=== PATIENT | male | born 1990 | race Caucasian/White ===

== ENCOUNTER 2016-09-03 03:35 | Emergency (ER) | payer BC ==
[2016-09-03 03:43] VITALS: BP 173/113; TEMP 97.5
[2016-09-03] MEDS ORDERED: CEPHALEXIN 500MG STARTER PACK 4 CAP BTL PO STA (04:05)
[2016-09-03] MEDS ORDERED: SULFAMETH-TMP DS STARTER PACK 2 TAB BTL PO STA (04:05)
--- NOTE | 2016-09-03 04:16 | ED ---
General Adult HPI - General Chief complaint: Skin/Abscess/Foreign Body Stated complaint: Swelling in both legs Time Seen by Provider: 09/03/16 03:41 Source: patient, RN notes reviewed Mode of arrival: ambulatory Limitations: no limitations - History of Present Illness Initial comments: 26-year-old male presenting with chief complaint of rash. Patient has had a rash on both legs, which is been red and itchy for several months. He has noticed a rash on his lower abdomen and under his arms from time to time these locations are currently resolved. The rash remains constant on both his legs primarily behind his knees. Patient has been scratching and noticed worsening swelling of his right lower extremity. He was concerned for infection and presents for evaluation. Patient denies any other symptoms including, shortness breath, nausea vomiting diarrhea. He does have a history of asthma, and does not use IV drugs. Patient was concerned that this may be scabies, no one else in the home has any rash. 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 - Related Data Home Medications Medication Instructions Recorded Confirmed Albuterol Inhaler [Ventolin Hfa 1 - 2 puff INHALATION Q6HR PRN 09/03/16 09/03/16 Inhaler] Fluticasone/Salmeterol [Advair 1 inhalation PO BID 09/03/16 09/03/16 250-50 Diskus] Previous Rx's Medication Instructions Recorded Cephalexin [Keflex] 500 mg PO Q8HR #21 cap 09/03/16 Hydrocortisone Cream 1 applic TOPICAL BID #60 gm 09/03/16 [Hydrocortisone 1% Cream] Sulfamethox-Tmp 800-160Mg [Bactrim 1 tab PO Q12HR #14 tab 09/03/16 DS 800-160 mg] Allergies Allergy/AdvReac Type Severity Reaction Status Date / Time No Known Allergies Allergy Verified 09/03/16 03:43 Review of Systems ROS Statement: Those systems with pertinent positive or pertinent negative responses have been documented in the HPI. ROS Other: All systems not noted in ROS Statement are negative. Past Medical History Past Medical History: No Reported History, Asthma History of Any Multi-Drug Resistant Organisms: None Reported Past Surgical History: No Surgical Hx Reported Past Psychological History: No Psychological Hx Reported Smoking Status: Never smoker Past Alcohol Use History: Occasional Past Drug Use History: Marijuana General Exam Limitations: no limitations General appearance: alert, in no apparent distress Head exam: Present: atraumatic, normocephalic Eye exam: Present: normal appearance, PERRL ENT exam: Present: normal exam Neck exam: Present: normal inspection, full ROM. Absent: tenderness Respiratory exam: Present: normal lung sounds bilaterally. Absent: respiratory distress Cardiovascular Exam: Present: regular rate, normal rhythm GI/Abdominal exam: Present: soft. Absent: distended, tenderness Extremities exam: Present: calf tenderness, other (Rash located primarily on the posterior medial surface of past lower extremities. Primarily surrounding the knee. There is thickening and hyperkeratosis. There is multiple open wounds with some minor crusting. There does appear to be small amount of associated cellulitis.) Back exam: Present: normal inspection Neurological exam: Present: alert, oriented X3 Psychiatric exam: Present: normal affect, normal mood Skin exam: Present: warm, dry Course Vital Signs 09/03/16 03:37 Temperature 97.5 F L Pulse Rate 114 H Respiratory 20 Rate Blood Pressure 173/113 O2 Sat by Pulse 99 Oximetry Medical Decision Making - Medical Decision Making 26-year-old male presenting with 2 month history of rash on bilateral lower extremities. Patient was concerned as over the past 4 days the right leg has worsened and he noted some swelling. Primary rash does appear to be eczema with skin thickening and erythema. There also is some concern for secondary bacterial infection and mild cellulitis. No calf tenderness noted. Patient has not tried any creams or ointments. He will be given hydrocortisone cream, and also given a seven-day course of antibiotics to cover for secondary infection. He will follow-up with his primary care physician and dermatology. He is instructed to return to the emergency department with worsening symptoms. Disposition Clinical Impression: Eczema Disposition: HOME SELF-CARE Condition: Good Instructions: Eczema (ED), Cellulitis (ED) Prescriptions: Cephalexin [Keflex] 500 mg PO Q8HR #21 cap Hydrocortisone Cream [Hydrocortisone 1% Cream] 1 applic TOPICAL BID #60 gm Sulfamethox-Tmp 800-160Mg [Bactrim DS 800-160 mg] 1 tab PO Q12HR #14 tab Referrals: None,Stated [Primary Care Provider] - 1-2 days Calu Anderson MD [STAFF PHYSICIAN] - 1-2 days Brittany Costa MD [STAFF PHYSICIAN] - 1-2 days Time of Disposition: 04:10
[2016-09-03 04:26] VITALS: PULSE 87; RESP 18
== END 2016-09-03 04:28 | disposition home or self-care (01) ==
LOC: EC 03:35
DX: L30.9 Dermatitis, unspecified (principal); J45.909 Unspecified asthma, uncomplicated; Z79.51 Long term (current) use of inhaled steroids
CPT/HCPCS: 99283